=== PATIENT | female | born 1990 | race Caucasian/White ===

== ENCOUNTER 2018-06-30 12:44 | Emergency (ER) | payer MEDICAID, OTHER ==
[~2018-06-30] VITALS: Ht 160 cm; Wt 62.0 kg
[2018-06-30] MEDS ORDERED: IBUPROFEN 800MG TABLET PO ONE (15:30)
[2018-06-30 17:12] VITALS: BP 112/67
== END 2018-06-30 17:14 | disposition home or self-care (01) ==
LOC: ER 12:44
DX: S60.212A Contusion of left wrist, initial encounter (principal); S60.222A Contusion of left hand, initial encounter; R03.0 Elevated blood-pressure reading, without diagnosis of hypertension; W22.8XXA Striking against or struck by other objects, initial encounter; Y93.89 Activity, other specified; Y92.018 Other place in single-family (private) house as the place of occurrence of the external cause
CPT/HCPCS: 73110; 73130; 99284